=== PATIENT | male | born 1975 | race Caucasian/White ===

== ENCOUNTER 2019-04-12 19:05 | Inpatient (IN) | payer OTHER ==
[~2019-04-12 19:05] MED LIST: chlordiazePOXIDE HCL 25 MG CAPSULE PO SCH
[2019-04-12 21:34] VITALS: BMI 25.8
--- NOTE | 2019-04-12 22:36 | HP ---
CIWA Score Nausea/Vomitin-No Nausea/No Vomiting Muscle Tremors: 4-Moderate,w/Arms Extend Anxiety: 4-Mod. Anxious/Guarded Agitation: 4-Moderately Restless Paroxysmal Sweats: 3 Orientation: 0-Oriented Tacttile Disturbances: 0-None Auditory Disturbances: 0-None Visual Disturbances: 0-None Headache: 3-Moderate CIWA-Ar Total Score: 18 - Admission Criteria [facility]ASAS Guidelines: Admission for Medically Managed Detox: Requires at least one of the followin. CIWA greater than 12 2. Seizures within the past 24 hours 3. Delirium tremens within the past 24 hours 4. Hallucinations within the past 24 hours 5. Acute intervention needed for co occurring medical disorder 6. Acute intervention needed for co occurring psychiatric disorder 7. Severe withdrawal that cannot be handled at a lower level of care (continued vomiting, continued diarrhea, abnormal vital signs) requiring intravenous medication and/or fluids 8. Admission ROS [facility] Chief Complaint: Alcohol withdrawal symptoms Allergies/Adverse Reactions: Allergies Allergy/AdvReac Type Severity Reaction Status Date / Time No Known Allergies Allergy Verified 04/12/19 21:20 History of Present Illness: 43 years old male with a long history of alcohol dependence is seeking admission to detox. Patient has been to previous detox, last at [place], [place] and reports 60 months of sobriety. He has history of liver cirrhosis, anxiety and depression. He denies suicide attempt/ suicidal ideation at his time Exam Limitations: Clinical Condition - Ebola screening Have you traveled outside of the country in the last 21 days: No (N) Have you had contact with anyone from an Ebola affected area: No Do you have a fever: No - Review of Systems Constitutional: Chills, Malaise, Night Sweats, Changes in sleep, Weakness EENT: reports: No Symptoms Reported Respiratory: reports: No Symptoms reported Cardiac: reports: No Symptoms Reported GI: reports: Poor Appetite, Poor Fluid Intake, Abdominal cramping : reports: No Symptoms Reported Musculoskeletal: reports: No Symptoms Reported Integumentary: reports: Dryness, Flushing Neuro: reports: Headache, Tremors, Weakness Endocrine: reports: No Symptoms Reported Hematology: reports: No Symptoms Reported Psychiatric: reports: No Sypmtoms Reported, Mood/Affect Appropiate, Orientated x3, Anxious, Depressed Other Systems: Reviewed and Negative Patient History - Patient Surgical History Past Surgical History: No - PPD History Previous Implant?: Yes Documented Results: Negative w/o proof Implanted On Prior R Admission?: No PPD to be Administered?: Yes - Reproductive History Patient is a Female of Child Bearing Age (11 -55 yrs old): No (Male) - Smoking Cessation Smoking history: Current every day smoker Have you smoked in the past 12 months: Yes Aproximately how many cigarettes per day: 10 Hx Chewing Tobacco Use: No Initiated information on smoking cessation: Yes 'Breaking Loose' booklet given: 04/12/19 - Substance & Tx. History Hx Alcohol Use: Yes Hx Substance Use: No Substance Use Type: Alcohol Hx Substance Use Treatment: Yes ([place], [place]) - Substances abused Alcohol Substance route: Oral Frequency: Daily Amount used: 04/10OZ BEER Age of first use: 16 Date of last use: 04/12/19 Family Disease History - Family Disease History Family History: Denies Admission Physical Exam [facility] - Vital Signs Vital Signs: Vital Signs - 24 hr 04/12/19 21:20 Temperature 98.8 F Pulse Rate 75 Respiratory 18 Rate Blood Pressure 124/69 - Physical General Appearance: Yes: Severe Distress, Tremorous, Sweating, Anxious HEENTM: Yes: Within Normal Limits Respiratory: Yes: Lungs Clear, Normal Breath Sounds, No Respiratory Distress Neck: Yes: Supple Breast: Yes: Breast Exam Deferred Cardiology: Yes: Regular Rhythm, Regular Rate Abdominal: Yes: Normal Bowel Sounds Genitourinary: Yes: Within Normal Limits Back: Yes: Normal Inspection Musculoskeletal: Yes: Within Normal Limits Extremities: Yes: Tremors Neurological: Yes: Alert, Normal Mood/Affect Integumentary: Yes: Warm Lymphatic: Yes: Within Normal Limits - Diagnostic (1) Cirrhosis of liver Current Visit: Yes Status: Chronic Qualifiers: Hepatic cirrhosis type: alcoholic cirrhosis (2) Nicotine dependence Current Visit: Yes Status: Acute Qualifiers: Nicotine product type: cigarettes Substance use status: in withdrawal Qualified Code(s): F17.213 - Nicotine dependence, cigarettes, with withdrawal (3) Anxiety Current Visit: Yes Status: Chronic (4) Alcohol dependence with uncomplicated withdrawal Current Visit: Yes Status: Acute Cleared for Admission [facility] - Detox or Rehab [facility] Level of Care: Medically Managed Detox Regimen/Protocol: Librium Inpatient Rehab Admission - Rehab Decision to Admit Inpatient rehab admission?: No
[2019-04-12] MEDS ORDERED: hydrOXYzine HCL 25 MG TABLET (FP) PO PRN (22:43)
[2019-04-12] MEDS ORDERED: MENTHOL/PHENOL 1 EACH UD MM PRN (22:43)
[2019-04-12] MEDS ORDERED: METHOCARBAMOL 500 MG TABLET PO PRN (22:43)
[2019-04-12] MEDS ORDERED: BISMUTH SUBSALICYLATE 524 MG/30 ML UD PO PRN (22:43)
[2019-04-12] MEDS ORDERED: MAGNESIUM CITRATE 300 ML BOTTLE PO PRN (22:43)
[2019-04-12] MEDS ORDERED: IBUPROFEN 400 MG TABLET (FP) PO PRN (22:43)
[2019-04-12] MEDS ORDERED: MAGNESIUM HYDROX 2400MG/30ML ORAL SUSPENSION 30 ML CUP PO PRN (22:43)
[2019-04-12] MEDS ORDERED: chlordiazePOXIDE HCL 10 MG CAPSULE PO PRN (22:43)
[2019-04-12] MEDS ORDERED: MAG HYDROX/AL HYDROX/SIMETH 30 ML UNIT-DOSE CUP PO PRN (22:43)
[2019-04-12] MEDS ORDERED: NICOTINE POLACRILEX 2 MG GUM BUC PRN (22:43)
[2019-04-12] MEDS ORDERED: ACETAMINOPHEN 325 MG TABLET (FP) PO PRN ×2 (22:43)
[2019-04-13] MEDS ORDERED: chlordiazePOXIDE HCL 25 MG CAPSULE PO ONE (00:52)
[2019-04-13] MEDS ORDERED: LACTULOSE 15 GM PO SCH (06:00)
[2019-04-13] MEDS: chlordiazePOXIDE 5 MG CAPSULE PO SCH ×3 (06:14→22:06)
[2019-04-13] MEDS: LACTULOSE 20 GM/30 ML UDC (FOR ORAL USE ONLY) PO SCH ×3 (06:15→22:06)
[2019-04-13] MEDS: PRENATAL VITAMINS W/ FOLIC ACID TABLET (FP) PO SCH (10:42)
[2019-04-13] MEDS: NICOTINE 14 MG/24 HOURS TOPICAL PATCH TD SCH (10:42)
--- NOTE | 2019-04-13 10:59 | PN ---
[facility] CIWA - CIWA Score Nausea/Vomitin Muscle Tremors: 2 Anxiety: 2 Agitation: 2 Paroxysmal Sweats: 1-Minimal Palms Moist Orientation: 0-Oriented Tacttile Disturbances: 1-Very Mild Itch/Numbness Auditory Disturbances: 0-None Visual Disturbances: 0-None Headache: 2-Mild CIWA-Ar Total Score: 12 [facility] Progress Note (SOAP) Subjective: alert,irritable,anxious,interrupted sleep,tremor,itching both hands eczema Objective: 04/13/19 10:53 Vital Signs Temperature 97.9 F 04/13/19 09:16 Pulse Rate 62 04/13/19 09:16 Respiratory Rate 18 04/13/19 09:16 Blood Pressure 117/72 04/13/19 09:16 O2 Sat by Pulse Oximetry (%) 04/13/19 10:54 labs pending Assessment: 04/13/19 10:54 withdrawal symptom Plan: continue detox,patient stated that he is taking librium before for detox without any problem,would like to be on librium, explain to patient blood for liver enzymes is pending,if abnormal regimen may need to be changed,patient understood
[2019-04-13 11:56] LABS: ALBUMIN 3.7 g/dl (3.4-5.0); BILIRUBIN,TOTAL 1.2 mg/dL (0.2-1); CALCIUM 9.3 mg/dL (8.5-10.1); CREATININE 0.6 mg/dL (0.55-1.3); HEMATOCRIT 38.5 % (35.4-49); HEMOGLOBIN 13.2 GM/dL (11.7-16.9); MCH 31.5 pg (25.7-33.7); MCHC 34.4 g/dl (32.0-35.9); MEAN CELL VOLUME 91.5 fl (80-96); MEAN PLT VOLUME 8.8 fl (7.5-11.1); POTASSIUM 3.9 mmol/L (3.5-5.1); WHITE BLOOD COUNT 2.1 K/mm3 (4.0-10.0)
[2019-04-13] MEDS: HYDROCORTISONE 1% TOPICAL OINT 30 GM TUBE TP SCH ×2 (12:00→22:06)
[2019-04-13 12:56] LABS: PLATELET COUNT 83 K/MM3 (134-434)
--- NOTE | 2019-04-13 15:16 | EKG ---
Test Reason : Blood Pressure : / mmHG Vent. Rate : 070 BPM Atrial Rate : 070 BPM P-R Int : 174 ms QRS Dur : 094 ms QT Int : 414 ms P-R-T Axes : 053 013 024 degrees QTc Int : 447 ms NORMAL SINUS RHYTHM NORMAL ECG NO PREVIOUS ECGS AVAILABLE Confirmed by Benoit Zavala ([id number]) on 04/13/2019 3:15:53 PM Referred By: [facility] Confirmed By:Benoit Zavala
[2019-04-13] MEDS: THIAMINE HCL 100 MG TABLET (FP) PO SCH (22:06)
[2019-04-14] MEDS ORDERED: chlordiazePOXIDE HCL 10 MG CAPSULE PO PRN
[2019-04-14] MEDS: MELATONIN 5 MG TABLETS PO PRN ×2 (02:11→22:11)
[2019-04-14] MEDS: chlordiazePOXIDE HCL 10 MG CAPSULE PO SCH ×3 (05:56→22:09)
[2019-04-14] MEDS: LACTULOSE 20 GM/30 ML UDC (FOR ORAL USE ONLY) PO SCH ×3 (08:02→22:09)
--- NOTE | 2019-04-14 09:32 | PN ---
[facility] CIWA - CIWA Score Nausea/Vomitin-Mild Nausea/No Vomiting Muscle Tremors: 1-None Visible, but [place] Anxiety: 2 Agitation: 3 Paroxysmal Sweats: No Perspiration Orientation: 0-Oriented Tacttile Disturbances: 0-None Auditory Disturbances: 0-None Visual Disturbances: 0-None Headache: 1-Very Mild CIWA-Ar Total Score: 8 S Progress Note (SOAP) Subjective: alert,irritable,anxious,interrupted sleep,pain in the body Objective: 04/14/19 09:28 Vital Signs Temperature 97.8 F 04/14/19 09:14 Pulse Rate 66 04/14/19 09:14 Respiratory Rate 18 04/14/19 09:14 Blood Pressure 118/70 04/14/19 09:14 O2 Sat by Pulse Oximetry (%) Laboratory Last Values WBC 2.1 K/mm3 (4.0-10.0) L 04/13/19 07:30 RBC 4.20 M/mm3 (4.00-5.60) 04/13/19 07:30 Hgb 13.2 GM/dL (11.7-16.9) 04/13/19 07:30 Hct 38.5 % (35.4-49) 04/13/19 07:30 MCV 91.5 fl (80-96) 04/13/19 07:30 MCH 31.5 pg (25.7-33.7) 04/13/19 07:30 MCHC 34.4 g/dl (32.0-35.9) 04/13/19 07:30 RDW 16.0 % (11.9-15.9) H 04/13/19 07:30 Plt Count 83 K/MM3 (134-434) L 04/13/19 07:30 MPV 8.8 fl (7.5-11.1) 04/13/19 07:30 Sodium 143 mmol/L (136-145) 04/13/19 07:30 Potassium 3.9 mmol/L (3.5-5.1) 04/13/19 07:30 Chloride 107 mmol/L (98-107) 04/13/19 07:30 Carbon Dioxide 30 mmol/L (21-32) 04/13/19 07:30 Anion Gap 7 MMOL/L (8-16) L 04/13/19 07:30 BUN 12.0 mg/dL (7-18) 04/13/19 07:30 Creatinine 0.6 mg/dL (0.55-1.3) 04/13/19 07:30 Est GFR (CKD-EPI)AfAm 143.73 04/13/19 07:30 Est GFR (CKD-EPI)NonAf 124.01 04/13/19 07:30 Random Glucose 84 mg/dL (74-106) 04/13/19 07:30 Calcium 9.3 mg/dL (8.5-10.1) 04/13/19 07:30 Total Bilirubin 1.2 mg/dL (0.2-1) H 04/13/19 07:30 AST 66 U/L (15-37) H 04/13/19 07:30 ALT 87 U/L (13-61) H 04/13/19 07:30 Alkaline Phosphatase 74 U/L (45-117) 04/13/19 07:30 Total Protein 7.0 g/dl (6.4-8.2) 04/13/19 07:30 Albumin 3.7 g/dl (3.4-5.0) 04/13/19 07:30 RPR Titer Nonreactive (NONREACTIVE) 04/13/19 07:30 Assessment: 04/14/19 09:29 withdrawal symptom Plan: continue detox librium regimen wbc 2,100,platelet 83k,patient has leukopenia nad thrombocytopenia in the past, ast 66,alt87, plan for discharge in am follow up with his PMD upon discharge
[2019-04-14] MEDS: HYDROCORTISONE 1% TOPICAL OINT 30 GM TUBE TP SCH ×2 (10:15→22:11)
[2019-04-14] MEDS: PRENATAL VITAMINS W/ FOLIC ACID TABLET (FP) PO SCH (10:15)
[2019-04-14] MEDS: NICOTINE 14 MG/24 HOURS TOPICAL PATCH TD SCH (10:15)
[2019-04-14] MEDS: THIAMINE HCL 100 MG TABLET (FP) PO SCH (22:10)
[2019-04-15] MEDS ORDERED: chlordiazePOXIDE HCL 10 MG CAPSULE PO ONE (05:00)
[2019-04-15] MEDS: LACTULOSE 20 GM/30 ML UDC (FOR ORAL USE ONLY) PO SCH (06:26)
[2019-04-15 07:13] VITALS: BP 120/69; PULSE 60; TEMP 97.3
--- NOTE | 2019-04-15 08:35 | DS ---
[facility] Detox Discharge Summary Admission Date: 04/12/19 Discharge Date: 04/15/19 - History Present History: Alcohol Dependence - Physical Exam Results Vital Signs: Vital Signs Temperature 97.3 F L 04/15/19 07:12 Pulse Rate 60 04/15/19 07:12 Respiratory Rate 18 04/15/19 07:12 Blood Pressure 120/69 04/15/19 07:12 O2 Sat by Pulse Oximetry (%) Pertinent Admission Physical Exam Findings: pt arrived in withdrawals Laboratory Tests 04/13/19 04/13/19 04/13/19 07:30 07:30 07:30 WBC 2.1 L RBC 4.20 Hgb 13.2 Hct 38.5 MCV 91.5 MCH 31.5 MCHC 34.4 RDW 16.0 H Plt Count 83 L MPV 8.8 Sodium 143 Potassium 3.9 Chloride 107 Carbon Dioxide 30 Anion Gap 7 L BUN 12.0 Creatinine 0.6 Est GFR (CKD-EPI)AfAm 143.73 Est GFR (CKD-EPI)NonAf 124.01 Random Glucose 84 Calcium 9.3 Total Bilirubin 1.2 H AST 66 H ALT 87 H Alkaline Phosphatase 74 Total Protein 7.0 Albumin 3.7 RPR Titer Nonreactive pt is aaox3 ambulating no acute distress - Treatment Hospital Course: Detox Protocol Followed, Detoxed Safely, Responded well, Discharged Condition Good, Rehab Referral Accepted Patient has Accepted a Rehab Referral to: referral provided - Medication Discharge Medications: Ambulatory Orders Lactulose 15 gm PO TID 04/12/19 - Diagnosis (1) Alcohol dependence with uncomplicated withdrawal Status: Chronic (2) Nicotine dependence Status: Acute Qualifiers: Nicotine product type: cigarettes Substance use status: uncomplicated Qualified Code(s): F17.210 - Nicotine dependence, cigarettes, uncomplicated (3) Anxiety Status: Chronic (4) Cirrhosis of liver Status: Chronic Qualifiers: Hepatic cirrhosis type: alcoholic cirrhosis - AMA Did Patient Leave Against Medical Advice: No
== END 2019-04-15 06:45 | disposition home or self-care (01) | DRG 775 ==
LOC: YASAS 19:05 → Y6N 23:00
PROVIDERS: ADMIT Surgery; ATTEND Surgery
PROC: HZ2ZZZZ Detoxification Services for Substance Abuse Treatment (ICD-10-PCS; principal; 2019-04-12)
DX: F10.230 Alcohol dependence with withdrawal, uncomplicated (principal); F17.210 Nicotine dependence, cigarettes, uncomplicated; F41.9 Anxiety disorder, unspecified; K70.30 Alcoholic cirrhosis of liver without ascites; D72.819 Decreased white blood cell count, unspecified; D69.6 Thrombocytopenia, unspecified; R94.5 Abnormal results of liver function studies
CPT/HCPCS: 36415; 80053; 85027; 86480; 86593; 93005; 93010